=== PATIENT | female | born 1955 | race Caucasian/White ===

== ENCOUNTER 2021-06-04 16:45 | Inpatient (IN) | payer MEDICAID ==
[~2021-06-04] VITALS: Ht 142.2 cm; Wt 72.6 kg
[2021-06-04] MEDS ORDERED: ONDANSETRON HCL 4MG/2ML INJ IV ONE (17:30)
[2021-06-04 17:34] LABS: BASOPHILS % 0.5 % (0.0-2.0); EOSINOPHILS % 1.7 % (0.0-5.0); HEMATOCRIT. 39.8 % (36.0-48.0); HEMOGLOBIN. 13.2 g/dL (12.0-16.0); LYMPHOCYTES % 11.5 % (20.0-50.0); MEAN CORPUSCULAR HEMOGLOBIN 28.6 pg (28.0-32.0); MEAN CORPUSCULAR VOLUME 86.6 fL (81.0-99.0); MEAN PLATELET VOLUME 11.7 fl (7.4-10.4); MONOCYTES % 2.6 % (2.0-8.0); NEUTROPHILS % 83.7 % (40.0-76.0); PLATELET 94 x1000/uL (130-400); RED BLOOD CELL COUNT 4.59 mill/uL (4.2-5.4)
[2021-06-04 17:39] LABS: CHLORIDE 108 mEq/L (98-107)
[2021-06-04 17:43] LABS: ETHANOL BLOOD < 10 mg/dL
[2021-06-04 17:49] LABS: PROTHROMBIN TIME 10.8 sec (9.6-11.0)
[2021-06-04] MEDS ORDERED: AZITHROMYCIN 500 MG in DEXT 5% WATER 250 ML IV STA (19:37)
[2021-06-04] MEDS ORDERED: CEFTRIAXONE 1 G PREMIX 50 ML IV ONE (19:45)
[2021-06-04] MEDS ORDERED: MORPHINE SULFATE 2 MG/ML CPJ (NOT FOR IM USE) IV PRN (21:00)
[2021-06-04] MEDS ORDERED: ONDANSETRON HCL 4MG/2ML INJ IV PRN (21:00)
[2021-06-04] MEDS ORDERED: CLONIDINE 0.1MG TABLET PO PRN (21:00)
[2021-06-04] MEDS ORDERED: ENOXAPARIN 40MG/0.4ML SYR SUBCUT SCH (21:00)
[2021-06-04] MEDS ORDERED: LORAZEPAM 2MG/ML CPJ IV PRN (21:00)
[2021-06-04] MEDS ORDERED: POTASSIUM CHLORIDE 20MEQ TABLET SR PO SCH (21:15)
[2021-06-04] MEDS ORDERED: NALOXONE HCL 0.4MG/ML VIAL IV PRN (21:15)
[2021-06-04] MEDS: SODIUM CHLORIDE 0.9% 1,000 ML IV SCH (22:38)
[2021-06-04 23:05] LABS: CLARITY URINE CLEAR (CLEAR); COLOR URINE YELLOW (YELLOW); KETONES URINE TRACE (NEGATIVE); LEUKOCYTE ESTERASE URINE 1+ (NEGATIVE); NITRITE URINE NEGATIVE (NEGATIVE); OCCULT BLOOD URINE 2+ (NEGATIVE); PROTEIN URINE NEGATIVE (NEGATIVE); SPECIFIC GRAVITY URINE 1.019 (1.005-1.030)
[2021-06-04 23:16] LABS: *AMPHETAMINES SCREEN URINE NEGATIVE (NEGATIVE); *BARBITURATES SCREEN URINE NEGATIVE (NEGATIVE); *BENZODIAZEPINES SCREEN URINE NEGATIVE (NEGATIVE); *COCAINE SCREEN URINE NEGATIVE (NEGATIVE); METHADONE URINE SCREEN NEGATIVE (NEGATIVE)
[2021-06-04 23:17] LABS: CANNABINOID URINE SCREEN NEGATIVE (NEGATIVE); OPIATES URINE SCREEN NEGATIVE (NEGATIVE); PHENCYCLIDINE URINE SCREEN NEGATIVE (NEGATIVE)
[2021-06-05 00:43] LABS: CREATINE KINASE 88 IU/L (26-192)
[2021-06-05 00:44] LABS: CREATINE KINASE MB FRACTION < 1.0 ng/mL (0.5-3.6)
[2021-06-05 04:58] LABS: HEMATOCRIT. 35.8 % (36.0-48.0); HEMOGLOBIN. 12.1 g/dL (12.0-16.0); MEAN CORPUSCULAR HEMOGLOBIN 28.9 pg (28.0-32.0); MEAN CORPUSCULAR VOLUME 85.3 fL (81.0-99.0); MEAN PLATELET VOLUME 11.3 fl (7.4-10.4); PLATELET 89 x1000/uL (130-400); RED CELL DISTRIBUTION WIDTH 13.1 % (11.6-14.6)
[2021-06-05 05:04] LABS: CHLORIDE 107 mEq/L (98-107)
[2021-06-05 05:13] LABS: CREATINE KINASE 77 IU/L (26-192)
[2021-06-05 05:15] LABS: CREATINE KINASE MB FRACTION < 1.0 ng/mL (0.5-3.6)
[2021-06-05] MEDS: SODIUM CHLORIDE 0.9% 1,000 ML IV SCH ×2 (07:03→17:34)
[2021-06-05 08:44] VITALS: BP 125/66
[2021-06-05] MEDS: THIAMINE HCL 100MG TABLET PO SCH (09:15)
[2021-06-05] MEDS: FOLIC ACID 1MG TABLET PO SCH (09:15)
[2021-06-05] MEDS: HYDROCODONE/ACETAMINOPHEN 5/325MG TABLET PO PRN ×2 (09:16→18:31)
[2021-06-05 12:00] VITALS: BP 120/67
[2021-06-05 13:58] LABS: PLATELET ESTIMATE DECREASED
[2021-06-05 16:00] VITALS: BP 125/66
[2021-06-05 20:00] VITALS: BP 118/68
[2021-06-05] MEDS ORDERED: AZITHROMYCIN 250 MG TABLET PO SCH (21:00)
[2021-06-05] MEDS ORDERED: CEFTRIAXONE 1,000 MG in DEXTROSE 5% WATER 50 ML IV SCH (21:00)
[2021-06-06] VITALS: BP 117/69
[2021-06-06 04:00] VITALS: BP 112/61
[2021-06-06] MEDS: SODIUM CHLORIDE 0.9% 1,000 ML IV SCH ×2 (04:11→12:19)
[2021-06-06 08:00] VITALS: BP 140/97
[2021-06-06] MEDS: FOLIC ACID 1MG TABLET PO SCH (09:22)
[2021-06-06] MEDS: THIAMINE HCL 100MG TABLET PO SCH (09:22)
[2021-06-06] MEDS ORDERED: LEVO500T89 MT (11:06)
[2021-06-06 12:00] VITALS: BP 132/74
[2021-06-06 16:00] VITALS: BP 127/79
[2021-06-06 18:11] VITALS: BP 127/79
== END 2021-06-06 18:54 | disposition home or self-care (01) | DRG 720 ==
LOC: ER 16:45 → MICUSO 20:53 → SUPCPDRO 20:58 → 7WST 06-05 07:12 → 7EST 06-05 14:54
PROVIDERS: ADMIT Internal Medicine Nephrology; ATTEND Internal Medicine Nephrology
DX: A41.9 Sepsis, unspecified organism (principal); G93.41 Metabolic encephalopathy; J18.9 Pneumonia, unspecified organism; E87.8 Other disorders of electrolyte and fluid balance, not elsewhere classified; E83.51 Hypocalcemia; R74.01 Elevation of levels of liver transaminase levels; Z20.822 Contact with and (suspected) exposure to COVID-19; E87.6 Hypokalemia; N39.0 Urinary tract infection, site not specified; Z98.51 Tubal ligation status
CPT/HCPCS: 36415; 70551; 71045; 80048; 80053; 80305; 80320; 81003; 82550; 82553; 82962; 83036; 84443; 84484; 85025; 87426; 93005; 97161; 99285; J0456; J0696; J2405; J7060; U0003; U0005; G0480